=== PATIENT | male | born 1960 | race Caucasian/White ===

== ENCOUNTER 2020-06-08 19:40 | Inpatient (IN) | payer MEDICAID, OTHER ==
[~2020-06-08] VITALS: Ht 185.4 cm; Wt 102.5 kg
[2020-06-09 00:52] LABS: BASOPHILS % 0.7 % (0.0-2.0); EOSINOPHILS % 1.3 % (0.0-5.0); HEMATOCRIT. 40.5 % (42.0-52.0); HEMOGLOBIN. 13.6 g/dL (14.0-18.0); LYMPHOCYTES % 21.2 % (20.0-50.0); MEAN CORPUSCULAR VOLUME 89.1 fL (80.0-94.0); MONOCYTES % 4.5 % (2.0-8.0); NEUTROPHILS % 72.3 % (40.0-76.0); PLATELET 121 x1000/uL (130-400); RED BLOOD CELL COUNT 4.54 mill/uL (4.7-6.1); RED CELL DISTRIBUTION WIDTH 19.1 % (11.6-14.6)
[2020-06-09 01:01] LABS: CHLORIDE 103 mEq/L (98-107)
[2020-06-09] MEDS ORDERED: NITROGLYCERIN 0.4MG TABLET SL SL PRN (01:15)
[2020-06-09] MEDS ORDERED: ASPIRIN 81MG TABLET PO ONE (01:15)
[2020-06-09] MEDS ORDERED: ONDANSETRON HCL 4MG/2ML INJ IV PRN (09:00)
[2020-06-09 09:15] VITALS: BP 171/86
[2020-06-09 11:16] VITALS: BP 168/89
[2020-06-09] MEDS: ASPIRIN 81MG TABLET PO SCH (11:19)
[2020-06-09] MEDS: METOPROLOL TARTRATE 50MG TABLET PO SCH ×2 (11:19→20:52)
[2020-06-09] MEDS: AMLODIPINE 10MG TABLET PO SCH (11:20)
[2020-06-09] MEDS: ENOXAPARIN 30MG/0.3ML SYR SUBCUT SCH ×2 (11:24→20:52)
[2020-06-09] MEDS ORDERED: CLONIDINE 0.1MG TABLET PO PRN (11:30)
[2020-06-09] MEDS ORDERED: CLONIDINE 0.2MG TABLET PO SCH (11:30)
[2020-06-09 12:00] LABS: LDL CHOLESTEROL 204 mg/dL (5-100)
[2020-06-09 12:02] LABS: HDL CHOLESTEROL 71 mg/dL (40-59)
[2020-06-09 12:14] LABS: HEPATITIS B SURFACE ANTIGEN NEGATIVE
[2020-06-09 12:44] LABS: HEPATITIS A AB IGM NEGATIVE (NEGATIVE)
[2020-06-09 16:27] VITALS: BP 132/75
[2020-06-09] MEDS ORDERED: DEXTROSE 50% WATER 50ML SYRINGE IV PRN (17:45)
[2020-06-09] MEDS: INSULIN LISPRO 100 UNITS/ML SUBCUT SCH ×2 (18:38→20:52)
[2020-06-09 20:08] VITALS: BP 138/72
[2020-06-09] MEDS: BLOOD SUGAR DIAGNOSTIC STRIP TEST SCH (20:15)
[2020-06-09 23:14] LABS: *AMPHETAMINES SCREEN URINE NEGATIVE (NEGATIVE); *BARBITURATES SCREEN URINE NEGATIVE (NEGATIVE); *BENZODIAZEPINES SCREEN URINE NEGATIVE (NEGATIVE); *COCAINE SCREEN URINE NEGATIVE (NEGATIVE); METHADONE URINE SCREEN NEGATIVE (NEGATIVE)
[2020-06-09 23:15] LABS: CANNABINOID URINE SCREEN NEGATIVE (NEGATIVE); OPIATES URINE SCREEN NEGATIVE (NEGATIVE); PHENCYCLIDINE URINE SCREEN NEGATIVE (NEGATIVE)
[2020-06-10 00:18] VITALS: BP 150/80
[2020-06-10 04:00] VITALS: BP 146/82
[2020-06-10 06:14] LABS: BASOPHILS % 0.7 % (0.0-2.0); EOSINOPHILS % 1.4 % (0.0-5.0); HEMATOCRIT. 37.2 % (42.0-52.0); HEMOGLOBIN. 12.6 g/dL (14.0-18.0); MEAN CORPUSCULAR VOLUME 88.6 fL (80.0-94.0); MEAN PLATELET VOLUME 8.4 fl (7.4-10.4); NEUTROPHILS % 70.9 % (40.0-76.0); PLATELET 98 x1000/uL (130-400); RED BLOOD CELL COUNT 4.19 mill/uL (4.7-6.1); RED CELL DISTRIBUTION WIDTH 18.9 % (11.6-14.6)
[2020-06-10 06:18] LABS: CHLORIDE 99 mEq/L (98-107)
[2020-06-10] MEDS: BLOOD SUGAR DIAGNOSTIC STRIP TEST SCH ×4 (06:22→20:17)
[2020-06-10 06:27] LABS: LDL CHOLESTEROL 175 mg/dL (5-100)
[2020-06-10 06:28] LABS: HDL CHOLESTEROL 53 mg/dL (40-59)
[2020-06-10 06:29] LABS: CREATINE KINASE 276 IU/L (39-308); CREATINE KINASE MB FRACTION 4.2 ng/mL (0.5-3.6)
[2020-06-10 07:56] VITALS: BP 145/82
[2020-06-10] MEDS: METOPROLOL TARTRATE 50MG TABLET PO SCH ×2 (09:07→21:15)
[2020-06-10] MEDS: AMLODIPINE 10MG TABLET PO SCH (09:07)
[2020-06-10] MEDS: ENOXAPARIN 30MG/0.3ML SYR SUBCUT SCH (09:08)
[2020-06-10] MEDS: ASPIRIN 81MG TABLET PO SCH (09:08)
[2020-06-10] MEDS: INSULIN LISPRO 100 UNITS/ML SUBCUT SCH ×4 (09:11→21:14)
[2020-06-10 11:13] VITALS: BP 124/79
[2020-06-10] MEDS ORDERED: MAGNESIUM 2 G PREMIX 50 ML IV SCH (13:00)
[2020-06-10 15:23] VITALS: BP 130/73
[2020-06-10] MEDS ORDERED: REGADENOSON 0.4 MG/5 ML IV ONE (16:45)
[2020-06-10 20:41] VITALS: BP 139/79
[2020-06-11] VITALS: BP 125/74
[2020-06-11 04:00] VITALS: BP 141/86
[2020-06-11] MEDS: BLOOD SUGAR DIAGNOSTIC STRIP TEST SCH ×2 (06:43→12:23)
[2020-06-11 06:45] LABS: CHLORIDE 101 mEq/L (98-107)
[2020-06-11 06:50] LABS: BASOPHILS % 0.7 % (0.0-2.0); EOSINOPHILS % 2.2 % (0.0-5.0); HEMATOCRIT. 37.7 % (42.0-52.0); HEMOGLOBIN. 12.8 g/dL (14.0-18.0); LYMPHOCYTES % 25.1 % (20.0-50.0); MEAN CORPUSCULAR HEMOGLOBIN 30.2 pg (28.0-32.0); MEAN CORPUSCULAR VOLUME 88.8 fL (80.0-94.0); MEAN PLATELET VOLUME 9.2 fl (7.4-10.4); MONOCYTES % 6.7 % (2.0-8.0); NEUTROPHILS % 65.3 % (40.0-76.0); PLATELET 101 x1000/uL (130-400); RED BLOOD CELL COUNT 4.25 mill/uL (4.7-6.1); RED CELL DISTRIBUTION WIDTH 18.8 % (11.6-14.6)
[2020-06-11] MEDS ORDERED: GLIPIZIDE XL 2.5MG TABLET PO SCH (07:50)
[2020-06-11] MEDS: INSULIN LISPRO 100 UNITS/ML SUBCUT SCH ×2 (07:50→12:25)
[2020-06-11 08:00] VITALS: BP 126/72
[2020-06-11] MEDS ORDERED: METF-416 MT (08:45)
[2020-06-11] MEDS ORDERED: LOSA100T32 MT (08:45)
[2020-06-11] MEDS ORDERED: GLIP5TAB12 MT (08:45)
[2020-06-11] MEDS: ASPIRIN 81MG TABLET PO SCH (08:51)
[2020-06-11] MEDS: AMLODIPINE 10MG TABLET PO SCH (08:51)
[2020-06-11] MEDS: METOPROLOL TARTRATE 50MG TABLET PO SCH (08:52)
[2020-06-11] MEDS ORDERED: ENOXAPARIN 40MG/0.4ML SYR SUBCUT SCH (09:00)
[2020-06-11 12:00] VITALS: BP 141/83
[2020-06-11 16:00] VITALS: BP 143/83
[2020-06-11 16:18] VITALS: BP 143/83
== END 2020-06-11 17:40 | disposition home or self-care (01) | DRG 203 ==
LOC: ER 19:40 → 6WST 06-09 03:51 → ENRESERV 06-09 04:48 → UNDODISIN 06-09 15:50
PROVIDERS: ADMIT Internal Medicine; ATTEND Internal Medicine
DX: M94.0 Chondrocostal junction syndrome [Tietze] (principal); D64.9 Anemia, unspecified; D69.6 Thrombocytopenia, unspecified; E87.1 Hypo-osmolality and hyponatremia; E11.9 Type 2 diabetes mellitus without complications; R74.01 Elevation of levels of liver transaminase levels; E78.5 Hyperlipidemia, unspecified; I10 Essential (primary) hypertension; E66.9 Obesity, unspecified; E78.2 Mixed hyperlipidemia; R16.0 Hepatomegaly, not elsewhere classified; F10.10 Alcohol abuse, uncomplicated; Y90.9 Presence of alcohol in blood, level not specified; R00.0 Tachycardia, unspecified; Z68.29 Body mass index [BMI] 29.0-29.9, adult; B91 Sequelae of poliomyelitis
CPT/HCPCS: 36415; 71045; 76700; 78452; 80053; 80061; 80305; 82550; 82553; 82962; 83036; 83735; 83880; 84443; 84484; 85025; 85379; 86705; 86709; 86803; 87340; 93005; 93017; 93306; 93970; 99285; A9500; J1650; J1815; J3475